=== PATIENT | male | born 1965 | race Caucasian/White ===

== ENCOUNTER 2023-04-06 22:15 | Emergency (ER) | payer SELFPAY ==
[2023-04-06] VITALS (11 sets, daily range): BP systolic 138–176; BP diastolic 93–113; PULSE 85–103; RESP 14–21; TEMP 36.8; O2SAT 94–97
--- NOTE | ~2023-04-06 | XR_ITS ---
Clinical Indication: Cough PA and lateral views of the chest: Comparison: 11/11/2014 Findings: The lungs are clear, without evidence of focal consolidation or pleural effusion. Cardiome diastinal silhouette is within normal limits. Bones and soft tissues are unremarkable. Impression: Normal chest. Reviewed, dictated and finalized at [facility]. DRILLER Impression: Normal chest.
--- NOTE | 2023-04-06 22:18 | ECG_ITS ---
Measurements Intervals [place] Rate: 88 P: 102 SC: 162 QRS: 58 QRSD: 107 T: 67 QT: 441 QTc: 534 Interpretive Statements SINUS RHYTHM POSSIBLE INFERIOR MYOCARDIAL INFARCTION ABNORMAL ECG NO PREVIOUS ECG AVAILABLE FOR COMPARISON Electronically Signed On 04-07-2023 12:45:22 JEWEL LATHE OPERATOR by Jean Pierre Baca M.D.
[2023-04-06 22:41] LABS: Basophils Percent Auto 0.5 % (0.2-1.2); Eosinophils Absolute Auto 0.2 K/mm3 (0-0.3); Hematocrit 41.2 % (42.0-52.0); Hemoglobin 13.9 g/dL (14.0-18.0); Immature Granulocyte Absolute 0.02 K/mm3 (0.00-0.031); Immature Granulocyte Percent A 0.2 % (0-0.5); Lymphocytes Absolute Auto 1.87 K/mm3 (0.9-3.2); Lymphocytes Percent Auto 23.1 % (18.3-44.2); Mean Corpuscular HGB Conc 33.7 g/dl (32-36); Mean Corpuscular Hemoglobin 31.8 pg (26-34); Mean Corpuscular Volume 94.3 fl (80-100); Mean Platelet Volume 8.7 fl (7.4-10.4); Monocytes Absolute Auto 0.7 K/mm3 (0.1-0.6); Monocytes Percent Auto 8.6 % (2.6-8.5); Neutrophils Absolute Auto 5.3 K/mm3 (1.3-6.7); Neutrophils Percent Auto 65.6 % (45.5-73.1); Platelet Count Result 268 k/mm3 (150-375); Red Blood Count 4.37 M/mm3 (4.6-6.20); Red Cell Distribution Width 12.7 % (11.5-14.5); White Blood Count 8.1 K/mm3 (4.5-10.0)
[2023-04-06 22:51] LABS: Alanine Aminotransferase 33 U/L (6-50); Albumin Level 4.9 g/dL (3.5-5.1); Alkaline Phosphatase 110 U/L (38-126); Anion Gap 10 mmol/L (8-16); Aspartate Amino Transferase 35 U/L (17-59); Bilirubin,Total 0.8 mg/dL (0.2-1.3); Blood Urea Nitrogen 4 mg/dL (9-20); Calcium 9.7 mg/dL (8.4-10.2); Carbon Dioxide 25 mmol/L (22-30); Chloride 95 mmol/L (98-107); Estimated CRCL calculation 136 ml/min; Estimated Glomerular Filt Rate > 60; Glucose 122 mg/dL (65-110); Potassium 3.4 mmol/L (3.4-5.0); Sodium 130 mmol/L (137-145)
--- NOTE | 2023-04-06 23:05 | ED.SYNCOPE ---
HPI - Syncope General Chief Complaint: Syncope Stated Complaint: passed out on and tonight Time Seen by Provider: 04/06/23 22:35 History of Present Illness HPI narrative: This is a 57-year-old male who denies significant past medical history, presenting to the emergency department complaining of 2 episodes of syncope. The patient states 3 days ago, he began coughing and woke up on the floor. His , who is at bedside notes patient was coughing became red in the face and lost consciousness for approximately 15 seconds before regaining consciousness with full orientation. The patient had a similar episode today, while sitting in a recliner. The patient also complains of left-sided chest and upper abdominal pain, he believes related to falling and striking his left side on a granite countertop 3 days ago. Related Data Allergies Allergy/AdvReac Type Severity Reaction Status Date / Time No Known Allergies Allergy Verified 04/06/23 22:17 Review of Systems Review of Systems: CONSTITUTIONAL: Denies fever, chills, or sweats. CARDIOVASCULAR: Denies chest pain, palpitations, or edema. RESPIRATORY: Denies cough or dyspnea. GASTROINTESTINAL: left upper quadrant and flank pain Denies nausea, vomiting, or diarrhea. GENITOURINARY: Denies dysuria or hematuria. SKIN: Denies rash or itching. MUSCULOSKELETAL: Denies back pain, joint pain, or myalgia. NEUROLOGIC: syncope Denies headache, numbness, dizziness, or weakness. PSYCHIATRIC: Denies anxiety or depression. PMFSH Past Medical History Medical History No significant medical problems Surgical History Surgical History No significant past surgical history Social History Social History Smoking status: Heavy tobacco smoker Alcohol intake: current Drinks per week: 28 Substance use: never Exam Narrative: GENERAL: Well-developed, well-nourished, and in no acute distress. HEAD: Normocephalic, atraumatic. EYES: PERRLA and EOMI. ENT: Nares clear, no rhinorrhea or epistaxis. Mucous membranes moist. Oropharynx without tonsillar hypertrophy exudate or other lesions. CHEST: Clear to auscultation. No respiratory distress. No wheezes rales or rhonchi HEART: Regular rate and rhythm. No murmur heard. Normal peripheral pulses. ABDOMEN: Soft, tender to palpation over the left flank and left upper quadrant, without rebound or guarding, mildly distended, normal active bowel sounds. EXTREMITIES: Normal range of motion. No edema. SKIN: Warm, dry, no rash. NEURO: Alert and oriented x3. No focal deficit. Moving all 4 limbs spontaneously PSYCH: Normal mood and affect. Course Course Emergency Course: 00:27 - CBC demonstrates mild anemia with hemoglobin of 13.99 ( baseline unknown). Chemistries remarkable for sodium of 130 but is otherwise unremarkable. Chest x-ray by my review not concerning for pneumothorax or infiltrate. EKG demonstrates prolonged QTC of 534 but is otherwise unremarkable. D-dimer positive. While replacing magnesium, the patient's IV infiltrated. Afterwards, the patient voiced preference to be discharged. I discussed the findings with recommendation for CT of the chest to rule out pulmonary embolism, the patient prefers to go. Will discharge against medical advice. Discussed return and emergency precautions including signs/symptoms of ACS and respiratory distress. The patient voiced understanding and is comfortable with the plan. All questions answered to his satisfaction. Vital Signs Vital signs: Vital Signs Temperature 98.3 F 04/06/23 22:22 Pulse Rate 92 04/06/23 22:22 Respiratory Rate 16 04/06/23 22:22 Blood Pressure 176/94 H 04/06/23 22:22 Pulse Oximetry 97 04/06/23 22:22 Oxygen Delivery Room Air 04/06/23 22:22 Temperature 98.3 F 04/06/23 22:22 Pulse Rate
--- NOTE | 2023-04-06 23:21 | PC.NURSE ---
Assumed care of pt. Report from VALERIANO Kimbrough. Pt in radiology
[2023-04-06] MEDS: MAGNESIUM SULF 2 GM/WATER 50ML 2 GM/50 ML BAG IVPB (23:24)
[2023-04-06 23:29] LABS: Prothrombin Time 13.5 Seconds (11.1-14.7)
[2023-04-06 23:30] LABS: Partial Thromboplastin Time 35.7 SECONDS (22.3-36.8)
--- NOTE | 2023-04-06 23:34 | PC.NURSE ---
patient called out that his iv was painful. upon entering room iv site was red and swollen. iv removed. patient refused attempts to regain access. warm compresss applied to infilitrated area
--- NOTE | 2023-04-06 23:52 | PC.NURSE ---
Pt's iv infiltrated and would not allow a restart per CN.
[2023-04-07] VITALS: BP 145/94; PULSE 84; RESP 18; O2SAT 97
[2023-04-07 00:07] LABS: D Dimer 0.77 ug/mL (<0.48)
== END 2023-04-07 00:35 | disposition left against medical advice (07) ==
PROVIDERS: Emergency Provider Preventive Medicine Aerospace Medicine; PCP Family Medicine
DX: R55 Syncope and collapse (principal); F17.200 Nicotine dependence, unspecified, uncomplicated; R94.31 Abnormal electrocardiogram [ECG] [EKG]
CPT/HCPCS: 36415; 71046; 80053; 85025; 85380; 85610; 85730; 93005; 96365; 99284; J3475